=== PATIENT | male | born 1950 | race Caucasian/White ===

== ENCOUNTER → 2020-10-27 10:23 | Outpatient (CLI) | payer MEDICARE, OTHER, SELFPAY ==
[2020-10-27 14:02] LABS: Prostate Specific Antigen < 0.064 ng/mL (0.10-4.00)
== END ==
PROVIDERS: Family Provider Family Medicine; PCP Family Medicine; Referring Provider Specialist; Visit Provider Specialist
DX: R97.20 Elevated prostate specific antigen [PSA] (principal)
CPT/HCPCS: 36415; 84153

== ENCOUNTER → 2021-11-02 14:37 | Outpatient (CLI) | payer MEDICARE, OTHER, SELFPAY ==
[2021-11-02 16:41] LABS: Prostate Specific Antigen Scrn < 0.064 ng/mL (0.1-4.0)
== END ==
PROVIDERS: Family Provider Family Medicine; PCP Family Medicine; Referring Provider Specialist; Visit Provider Specialist
DX: R97.20 Elevated prostate specific antigen [PSA] (principal)
CPT/HCPCS: 36415; 84153; G0103